=== PATIENT | male | born 1945 | race Caucasian/White ===

== ENCOUNTER 2018-06-06 12:43 | Day surgery (SDC) | payer MEDICARE, OTHER ==
[2018-05-31 11:10] LABS: HEMATOCRIT 45.6 % (37.9-51.0); HEMOGLOBIN 15.9 g/dL (13.5-17.0); MEAN CORPUSCULAR VOLUME 89 fl (80-97); PLATELET COUNT 203 10^3/uL (150-450); RED BLOOD COUNT 5.14 10^6/uL (4.35-5.55); WHITE BLOOD COUNT 5.6 10^3/uL (4.0-10.5)
[2018-05-31 11:38] LABS: ALANINE AMINOTRANSFERASE 71 U/L (21-72); ALBUMIN 4.3 g/dL (3.5-5.0); ALKALINE PHOSPHATASE 107 U/L (38-126); AMYLASE 89 U/L (30-110); ANION GAP 9 (5-19); ASPARTATE AMINO TRANSFERASE 22 U/L (17-59); BILIRUBIN,DIRECT 0.2 mg/dL (0.0-0.4); BILIRUBIN,TOTAL 1.1 mg/dL (0.2-1.3); BLOOD UREA NITROGEN 19 mg/dL (7-20); CALCIUM 9.8 mg/dL (8.4-10.2); CARBON DIOXIDE 28 mmol/L (22-30); CHLORIDE 103 mmol/L (98-107); GLUCOSE 89 mg/dL (75-110); LIPASE 99.9 U/L (23-300); POTASSIUM 4.5 mmol/L (3.6-5.0); SODIUM 139.5 mmol/L (137-145); TOTAL PROTEIN 7.1 g/dL (6.3-8.2)
--- NOTE | 2018-05-31 22:08 | EKG REPORT ---
SEVERITY:- OTHERWISE NORMAL ECG - SINUS RHYTHM BORDERLINE LEFT AXIS DEVIATION : Confirmed by: Kyara Longoria 31-May-2018 22:06:55
[~2018-06-06 12:43] MED LIST: BUPIVACAINE HCL 0.25 % INJ/PF (2.5 MG/1 ML) 30 ML VIAL ONE; CEFOXITIN SODIUM 2 GM in DEXTROSE 5%-WATER 100 ML IV PRN; IBUPROFEN 800 MG in NORMAL SALINE 250 ML IV PRN; LACTATED RINGERS 1000 ML IV PRN; LIDOCAINE 0.5% INJ-PF (5 MG/ML) 50 ML SDV SUBCUT PRN
[2018-06-06] MEDS ORDERED: ONDANSETRON HCL INJ/PF 4 MG/2 ML SDV ONE (12:49)
[2018-06-06] MEDS ORDERED: SUCCINYLCHOLINE CHLORIDE INJ 200 MG/10 ML VIAL ONE (12:49)
[2018-06-06] MEDS ORDERED: DEXAMETHASONE SOD PHOSPHATE INJ 4 MG/1 ML VIAL ONE (12:49)
[2018-06-06] MEDS ORDERED: GLYCOPYRROLATE 1 MG/5 ML SYRINGE ONE (12:49)
[2018-06-06] MEDS ORDERED: FENTANYL CITRATE INJ/PF 100 MCG/2 ML AMPUL ONE (14:41)
[2018-06-06] MEDS ORDERED: MIDAZOLAM 2 MG/2 ML INJ ONE (14:41)
[2018-06-06] MEDS ORDERED: HYDROMORPHONE HCL INJ/PF 2 MG/ML AMPULE ONE (14:41)
[2018-06-06] MEDS ORDERED: PROPOFOL INJ 200 MG/20 ML VIAL IV ONE (14:42)
[2018-06-06] MEDS ORDERED: ACETAMINOPHEN 1,000 MG/100 ML RTUPB IV ONE (14:42)
[2018-06-06] MEDS ORDERED: FENTANYL CITRATE INJ/PF 100 MCG/2 ML AMPUL IV PRN ×3 (16:09)
[2018-06-06] MEDS ORDERED: MEPERIDINE HCL/PF INJ 25 MG/1 ML DISP.SYRIN IV PRN (16:09)
[2018-06-06] MEDS ORDERED: MORPHINE SULFATE 10 MG/ML INJ IV PRN (16:09)
[2018-06-06] MEDS ORDERED: PROMETHAZINE HCL INJ 25 MG/1 ML VIAL IV PRN (16:09)
[2018-06-06] MEDS ORDERED: DIPHENHYDRAMINE HCL 50 MG/ML VIAL IV PRN (16:09)
[2018-06-06] MEDS ORDERED: ONDANSETRON HCL INJ/PF 4 MG/2 ML SDV IV PRN (16:09)
[2018-06-06] MEDS ORDERED: GLUCAGON,HUMAN RECOMB 1 MG INJ ONE (16:10)
--- NOTE | 2018-06-06 17:07 | RADIOLOGY REPORT (SQ) ---
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 FLUOROSCOPY TIME: 2.0 minutes Spot images saved to PACS. TECHNIQUE: Intra-operative images acquired during surgical procedure to evaluate progress. NUMBER OF IMAGES: 14 LIMITATIONS: None. FINDINGS: Fluoroscopy was provided for intraoperative procedure. Please refer to the operative repo rt for further discussion. IMPRESSION: IMAGE(S) OBTAINED DURING PROCEDURE. COMMENT: Quality ID [id number]: Final reports for procedures using fluoroscopy that document radiation exp osure indices, or exposure time and number of fluorographic images (if radiation exposure indices are not available) Please consult full operative report of the attending physician for description of the procedure. TECHNICAL DOCUMENTATION: JOB ID: [id number] [employer]- All Rights Reserved Reading location - IP/workstation name: [email or web address]
[2018-06-06 19:38] VITALS: BP 124/75
--- NOTE | 2018-06-08 13:45 | Discharge Summary ---
Discharge Summary (SDC) - Discharge Final Diagnosis: chronic cholecystitis, choledocolithiasis, symptomatic cholelithiasis Date of Surgery: 06/06/18 Discharge Date: 06/06/18 Condition: Stable Forms: ASU Anesthesia D/C Instruction, Discharge POC-Surgical Service Treatment or Instructions: DIET TOLERATED ACTIVITY NO LIFTING GREATER THAN 10 LBS FOR 2 WEEKS FOLLOW UP 7-10 DAYS TAKE NORCO FOR PAIN Q6H PRN Referrals: LEMUEL BEYER NP [Primary Care Provider] - NIKOS RIVER MD [ACTIVE STAFF] - 06/17/18 8:00 am Discharge Diet: As Tolerated Respiratory Treatments at Home: Deep Breathing/Coughing, Incentive Spirometer Discharge Activity: Balance Activity w/Rest, No Lifting Over 10 Pounds, No Lifting/Push/Pulling, No tub bath, Walk Frequently Home Care Assistance: Provided by Family Report the Following to Your Physician Immediately: Shortness of Breath, Nausea, Vomiting, Increase in Pain, Yellow Skin, Fever over 101 Degrees, Unusual Bleeding, Redness, Swelling, Warmth, Drainage-Foul Smelling
--- NOTE | 2018-06-08 14:25 | Operative Report ---
Nonrecallable Operative Report DATE OF SURGERY: 06/06/18 PREOPERATIVE DIAGNOSIS: symptomatic gallstones POSTOPERATIVE DIAGNOSIS: 1. choledocolithiasis. 2. chronic cholecystitis OPERATION: Laparoscopic cholecystectomy with intraoperative cholangiogram SURGEON: NIKOS RIVER ANESTHESIA: GA TISSUE REMOVED OR ALTERED: gallbladder COMPLICATIONS: none apparent ESTIMATED BLOOD LOSS: minimal PROCEDURE: drains: none [id number]: After informed consent was obtained, the pt was laid in the supine position in the operating room. The area of the abdomen was prepped and draped in a normal sterile fashion. The pt had a history of umbilical hernia repair. Secondary to this, the abdomen was accessed using the 5mm trocar, the 5 mm camera, and using the optiview technique. This was done in the right upper quadrant. Gas insufflation was attached, and pneumoperitoneum was achieved. There did not appear to be any hernia mesh present in the abdomen. An appropriate place for the 12 mm trocar was chosen in the supraumbilical position. The 12 mm trocar was placed under direct laparoscopic visualization. Another 5mm trocar was placed in the right lateral abdomen and in the subxyphoid position. Atraumatic graspers were placed through the 5mm ports. The gallbladder was retracted cephalad and laterally. The gallbladder was tense and distended. A cyst aspiration needle was used to empty bile from the gallbladder. There were numerous gallstones identified inside the gallbladder once the bile was aspirated. There was a chronic inflammatory response noted around the gallbladder. The dissection was begun at the triangle of calot. The cystic duct and cystic artery were identified. The cystic duct appeared very dilated with stones packed within it. The common bile duct was easily identified, and appeared dilated as well. It was felt prudent to perform a cholangiogram. A cystic ductotomy was performed and multiple small and large stones were milked up the dilated cystic duct. After this was completed, the Arrow cholangiogram catheter was inserted into the duct and flushed with saline. More stones and de bris were flushed from the duct. Next, a cholangiogram was shot. Isovue was injected into the duct, and a cholangiogram was obtained. The cholangiogram showed dye filling the common bile duct, common hepatic duct, right/left hepatic ducts, and the hepatic radicals. No filling defects could be identified within the bile ducts, suggestive of retained stones. Isovue was seen to course into the duodenum. At this time the cholangiogram was complete. The Arrow catheter was removed. The duct was too dilated to accommodate a clip, and a PDS endo-loop was felt necessary. The cystic artery was clipped and cut with laparoscopic instruments. The cystic duct was divided at the ductotomy. The gallbladder was then removed from the liver using sharp dissection, blunt dissection, and electrocautery. Once the gallbladder was completely freed, it was placed into an endocatch bag and removed from the umbilicus. The camera was reinserted. The cystic duct was ligated with a PDS endo-loop. The abdomen was then copiously irrigated. Multiple spilled stones were retrieved via laparoscopic methods. The hilum was inspected. It was free of any leakage of blood or bile. Surgicel was left in the gallbladder fossa due to a raw area, created during removal from the liver. Next, the 5mm trocars were removed under direct laparoscopic visualization. The 12 mm trocar was removed, and pneumoperitoneum was relieved. The supraumbilical fascia was closed with 0 vicryl suture in [id number] fashion. The overlying skin was closed using 4-0 vicryl Rapide suture in subcuticular fashion. Dressings were placed, and the procedure was concluded. All sponge, instruments, and needle counts were correct x2. Condition: stable.
== END 2018-06-06 19:25 | disposition home or self-care (01) ==
LOC: OROUT 12:43
PROVIDERS: ATTEND Surgery
DX: K80.10 Calculus of gallbladder with chronic cholecystitis without obstruction (principal); I10 Essential (primary) hypertension; E78.00 Pure hypercholesterolemia, unspecified; E05.90 Thyrotoxicosis, unspecified without thyrotoxic crisis or storm; Z87.442 Personal history of urinary calculi; I25.10 Atherosclerotic heart disease of native coronary artery without angina pectoris; R01.1 Cardiac murmur, unspecified; Z79.899 Other long term (current) drug therapy
CPT/HCPCS: 93010; 93005; 36415 ×2; 82150; 83690; 84132; 85027; 80076; 80048; 88304 ×2; 74300; 47563; Q9967; J2250; J1100; J0694; J1610; J1170; J0330; J2405; J7050; J2704; J0131; J1741; J3490; 790; J3010